=== PATIENT | male | born 1945 | race Caucasian/White ===

== ENCOUNTER 2017-09-13 07:30 | Emergency (ER) | payer MEDICARE ==
[~2017-09-13] VITALS: Ht 177.8 cm; Wt 86.2 kg
[2017-09-13] MEDS ORDERED: METFORMIN HCL500 MG PO (07:50)
[2017-09-13] MEDS ORDERED: SIMVASTATIN80 MG PO (07:50)
[2017-09-13] MEDS ORDERED: LEVOXYL75 MCG PO (07:51)
[2017-09-13] MEDS ORDERED: ATENOLOL25 MG PO (07:51)
[2017-09-13] MEDS ORDERED: ASPIRIN81 MG PO (07:52)
[2017-09-13] MEDS ORDERED: FENOFIBRATE145 MG PO (07:52)
--- NOTE | 2017-09-13 21:11 | EKG ---
[facility] [address] [facility] [place] [address] Signed Sinus bradycardia with 1st degree AV block T wave abnormality, consider lateral ischemia Abnormal ECG No previous ECGs available Confirmed by MEET JORDAN MD ([id number]) on 09/13/2017 9:11:39 PM Electronically Signed By: MEET JORDAN MD 09/13/172110 PATIENT NAME: ANNE MARIEASHLEY Electrocardiogram DATE OF : 49 PHYSICIAN: MEET JORDAN MD REPORT #: [id number] REPORT IS CONFIDENTIAL AND NOT TO BE RELEASED WITHOUT AUTHORIZATION
== END 2017-09-13 09:32 | disposition home or self-care (01) ==
LOC: ED 07:30
DX: R51 Headache (principal); R00.1 Bradycardia, unspecified; I10 Essential (primary) hypertension; E11.9 Type 2 diabetes mellitus without complications; Z79.899 Other long term (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; Z79.84 Long term (current) use of oral hypoglycemic drugs; Z79.82 Long term (current) use of aspirin
CPT/HCPCS: 80053; 84484; 85025; 93005; 93010; 99284; J1100; J1885; J2405; J2704; J3010; J7120

== ENCOUNTER 2019-11-06 17:57 | Emergency (ER) | payer MEDICARE, OTHER ==
[~2019-11-06] VITALS: Ht 177.8 cm; Wt 86.2 kg
[~2019-11-06 17:57] MED LIST: ASPIRIN81 MG PO; ATENOLOL25 MG PO; FENOFIBRATE145 MG PO; LEVOXYL75 MCG PO; METFORMIN HCL500 MG PO; SIMVASTATIN80 MG PO
== END 2019-11-06 19:17 | disposition home or self-care (01) ==
LOC: ED 17:57
DX: T63.441A Toxic effect of venom of bees, accidental (unintentional), initial encounter (principal); I10 Essential (primary) hypertension; E11.9 Type 2 diabetes mellitus without complications; Z79.899 Other long term (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
CPT/HCPCS: 99282

== ENCOUNTER 2020-11-15 08:56 | Emergency (ER) | payer MEDICARE ==
[~2020-11-15] VITALS: Ht 177.8 cm; Wt 86.2 kg
== END 2020-11-15 12:31 | disposition home or self-care (01) ==
LOC: ED 08:56
DX: U07.1 COVID-19 (principal); I10 Essential (primary) hypertension; E11.9 Type 2 diabetes mellitus without complications; Z79.899 Other long term (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; Z79.82 Long term (current) use of aspirin; Z79.84 Long term (current) use of oral hypoglycemic drugs
CPT/HCPCS: 71045; 80053; 83735; 84484; 85007; 85025; 93005; 93010; 96374; 99284-25; C9803; J2405; J7030; M0245; U0003

== ENCOUNTER 2020-11-15 20:38 | Observation (INO) | payer MEDICARE ==
[~2020-11-15] VITALS: Ht 177.8 cm; Wt 88.6 kg
--- OUTSIDE RECORDS SUMMARY | 2020-11-15 20:46 | XMS ---
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 Emil has no Care Guidelines for this patient. Jennifer [facility]12 MO.) [facility] NOTE: Visits indicate total known visits. ED/C VISIT TRACKING (12 MO.) [facility]2020 20:[facility] [place] [facility] Emergency COMPLAINT: - SOB,WEAKNESS, COVID+ 11/15/2020 13:31 [facility] Barr [place] TYPE: Emergency COMPLAINT: - FEVER, BODY ACHES 11/15/2020 08:57 [facility] Barr [place] TYPE: Emergency COMPLAINT: - COUGH, FEVER INPATIENT VISIT TRACKING (12 MO.) No inpatient visits to display in this time frame [email or web address]
--- NOTE | 2020-11-16 07:00 | NUR ---
[phone] SEE PAPER CHART.
--- NOTE | 2020-11-16 07:38 | NUR ---
this rn received report from veena avila. pt appears to be reviewing the menu for breakfast. no pulse ox tele in place at this time. respirations noted.
--- NOTE | 2020-11-16 08:30 | NUR ---
THIS RN IN PTS ROOM TO GIVE PT HIS MORNING MEDS. PT ALERT AND ORIENTED X4, VERY HARD OF HEARING BUT HAS NO COMPLAINTS THIS AM.
--- NOTE | 2020-11-16 09:13 | NUR ---
PATIENT UP TO BATHROOM AND BACK TO BED, SBA. I&O'S CHARTED. CALL LIGHT IN REACH. NO FURTHER NEEDS AT THIS TIME.
--- NOTE | 2020-11-16 09:50 | NUR ---
Spoke to pt by phone as he is covid+. He states he lives in [place] in a 1 story home with his who is not well. He has a ramp into the home for his . He does not use DME. He drives. States is not active and is sedate due to the hot weather. [facility]. States he is feeling better today,but remai nauseated. His daughter in law, Caitlin, will assist them as needed. She has not been exposed to covid, but will grocery shop and run er- RECESS.s as needed. Pt plans on dc to home when cleared medically.
--- NOTE | 2020-11-16 09:50 | NUR ---
Spoke to pt by phone as he is covid+. He states he lives in [place] in a 1 story home with his who is not well. He has a ramp into the home for his . He does not use DME. He drives. States is not active and is sedate due to the hot weather. [facility]. States he is feeling better today,but remain nauseated. His daughter in law, Caitlin, will assist them as needed. She has not been exposed to covid, but will grocery shop and run [employer] as needed. Pt plans on dc to home when cleared medically.
--- NOTE | 2020-11-16 10:48 | NUR ---
MED REC COMPLETE
--- NOTE | 2020-11-16 11:00 | NUR ---
Notified by staff, pt will go home with his daughter in law Caitlin.
== END 2020-11-16 13:35 | disposition home or self-care (01) ==
LOC: ED 20:38 → MS 20:40
PROVIDERS: ADMIT Student in an Organized Health Care Education/Training Program; ATTEND Student in an Organized Health Care Education/Training Program
DX: U07.1 COVID-19 (principal); G92 Toxic encephalopathy; T50.995A Adverse effect of other drugs, medicaments and biological substances, initial encounter; E03.9 Hypothyroidism, unspecified; I10 Essential (primary) hypertension; E11.9 Type 2 diabetes mellitus without complications; Z79.84 Long term (current) use of oral hypoglycemic drugs
CPT/HCPCS: 70450; 80048; 81001; 83735; 85025; 96372; 99285-25; G0378; J1650; J1815; J7030; J7121

== ENCOUNTER 2021-07-13 22:20 | Emergency (ER) | payer OTHER, MEDICARE ==
[~2021-07-13] VITALS: Ht 177.8 cm; Wt 88.5 kg
--- OUTSIDE RECORDS SUMMARY | 2021-07-13 22:28 | XMS ---
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 Care History Medical/Surgical 11/17/2020 [facility] \T\middot;\T\nbsp; PATIENT IS A -RECEIVES SERVICES THROUGH [facility] IN [place]. \T\middot;\T\nbsp; Location: [address], [place] [address]- E.D. VISIT COUNT (12 MO.) 1 [place] [address] DUANE Suárez TOTAL 5 NOTE: Visits indicate total known visits. ED/UCC VISIT TRACKING (12 MO.) 07/13/2021 22:21 [facility] Barr [place] TYPE: Emergency COMPLAINT: - POSSIBLE BLOOD CLOT 11/18/2020 14:01 [facility] [place] TYPE: Emergency DIAGNOSES: - Pneumonia, unspecified organism - Shortness of breath - Shortness of Breath 11/15/2020 20:39 [facility] Barr [place] TYPE: Emergency COMPLAINT: - SOB,WEAKNESS, COVID+ 11/15/2020 13:31 [facility] Barr [place] TYPE: Emergency COMPLAINT: - FEVER, BODY ACHES DIAGNOSES: - retirement (current) use of aspirin - Type 2 diabetes mellitus without complications - COVID-19 - retirement (current) use of oral hypoglycemic drugs - Essential (primary) hypertension - Fever, unspecified - 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 11/15/2020 08:57 [facility] Barr [place] TYPE: Emergency COMPLAINT: - COUGH, FEVER DIAGNOSES: - Type 2 diabetes mellitus without complications - COVID-19 - retirement (current) use of aspirin - 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 - Nausea with vomiting, unspecified - 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 - Essential (primary) hypertension INPATIENT VISIT TRACKING (12 MO.) [facility] DIAGNOSES: - COVID-19 - Acute respiratory failure with hypoxia - Shortness of breath - Pneumonia due to coronavirus disease 2018 - Pneumonia, unspecified organism 11/15/2020 20:40 DUANE Khanna TYPE: Observation COMPLAINT: - COVID DIAGNOSES: - Hypothyroidism, unspecified - COVID-19 - retirement (current) use of oral hypoglycemic drugs - Essential (primary) hypertension - Toxic encephalopathy - Type 2 diabetes mellitus without complications - Adverse effect of other drugs, medicaments and biological substances, initial encounter [email or web address]
--- NOTE | 2021-07-15 14:53 | EKG ---
[facility] [address] [facility] [place] [address] Signed Normal sinus rhythm Cannot rule out Inferior infarct , age undetermined ST \T\ T wave abnormality, consider lateral ischemia Abnormal ECG When compared with ECG of 15-NOV-2020 14:09, Minimal criteria for Inferior infarct are now present T wave inversion more evident in Lateral leads Confirmed by ERASMO FRANCISCO MD ([id number]) on 07/15/2021 2:53:44 PM Electronically Signed By: ERASMO FRANCISCO MD 07/15/21 1453 PATIENT NAME: ASHLEY KENNEY Electrocardiogram DATE OF : 49 PHYSICIAN: ERASMO FRANCISCO MD REPORT #: [id number] REPORT IS CONFIDENTIAL AND NOT TO BE RELEASED WITHOUT AUTHORIZATION
== END 2021-07-14 01:53 | disposition home or self-care (01) ==
LOC: ED 22:20
DX: R06.00 Dyspnea, unspecified (principal); M79.89 Other specified soft tissue disorders; R94.31 Abnormal electrocardiogram [ECG] [EKG]; I10 Essential (primary) hypertension; E11.9 Type 2 diabetes mellitus without complications; E03.9 Hypothyroidism, unspecified; Z79.82 Long term (current) use of aspirin; Z79.84 Long term (current) use of oral hypoglycemic drugs; Z79.899 Other long term (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
CPT/HCPCS: 36415; 71046; 80053; 84484; 85025; 85379; 93005; 93010; 93971; 99285-25